=== PATIENT | male | born 1960 | race Caucasian/White ===

== ENCOUNTER 2020-10-26 09:40 | Emergency (ER) | payer OTHER ==
[2020-10-26] MEDS ORDERED: SILVADENE20 GM TOP (12:00)
== END 2020-10-26 12:19 | disposition home or self-care (01) ==
LOC: FER 09:40
DX: T23.252A Burn of second degree of left palm, initial encounter (principal); T23.231A Burn of second degree of multiple right fingers (nail), not including thumb, initial encounter; X08.8XXA Exposure to other specified smoke, fire and flames, initial encounter
CPT/HCPCS: 99283